=== PATIENT | female | born 1945 | race Caucasian/White ===

== ENCOUNTER 2017-01-14 12:59 | Emergency (ER) | payer MEDICARE, OTHER | END 2017-01-14 14:37 | disposition home or self-care (01) | LOC: FER 12:59 | DX: J02.9 Acute pharyngitis, unspecified (principal); E03.9 Hypothyroidism, unspecified; Z79.899 Other long term (current) drug therapy | CPT/HCPCS: 87804; 87899; J0561 ==

== ENCOUNTER → 2022-08-01 | Day surgery (SDC) | payer MEDICARE, OTHER ==
[~2022-08-01] VITALS: Ht 157.5 cm; Wt 46.3 kg
[~2022-08-01] MED LIST: 8 HOUR650 MG PO; ANASTROZOLE1 MG PO; ASA PO; CALCIUM PO; CETIRIZINE HCL10 M1 PO; CLONAZEPAM2 MG PO; FEOSOL325 MG PO; LAXATIVE OF CHOICE; LEVOTHYROXINE50 MCG PO; MIRALAX17 GM PO; NEURONTIN300 MG PO; NYSTATIN SUSP1 ML/ML SSP; PANTOPRAZOLE SO40 MG PO; PERCOCET 5-3251 EACH PO; PREDNISONE 20MG20 MG PO; PREDNISONE5 MG PO; PROBIOTIC1 EAC2 PO; SYMBICORT 16010.2 GM INH; TESSALON PERLE100 MG PO; VENTOLIN (2.5 MG/3 M INH; VIBRAMYCIN100 MG PO; XARELTO10 MG PO; ZYRTEC10 M3 PO; flonase; gabapentin PO; multivitamin; vit E PO; vit d 3 PO
[2022-08-01 10:00] LABS: HCT 39.7 % (37.0-47.0); HGB 13.7 g/dl (12.5-16.0); MCH 32.2 pg (25.0-31.0); MCHC 34.5 g/dL (32.0-36.0); MCV 93.2 fL (78.0-100.0); MPV 8.8 fL (6.0-9.5); RBC 4.26 M/uL (4.20-5.40); RDW 12.1 % (11.5-14.0); WBC 9.1 K/uL (4.0-10.5)
[2022-08-01 10:29] LABS: ALBUMIN 3.6 g/dL (3.4-5.0); BILIRUBIN - TOTAL 0.4 mg/dL (0.2-1.0); BUN/CREAT RATIO (CALC) 18.6 RATIO; CREATININE 0.59 mg/dL (0.51-0.95); GLOBULIN (CALCULATION) 4.1 g/dL; POTASSIUM 4.2 mmol/L (3.5-5.1); TOTAL PROTEIN 7.7 g/dL (6.4-8.2)
== END | disposition home or self-care (01) ==
LOC: FAS 09:09
PROVIDERS: Surgery
DX: K21.00 Gastro-esophageal reflux disease with esophagitis, without bleeding (principal); K31.9 Disease of stomach and duodenum, unspecified; K12.1 Other forms of stomatitis; Z20.822 Contact with and (suspected) exposure to COVID-19
CPT/HCPCS: 36415; 80053; 94640; 94664; J2704; J7120; U0002